=== PATIENT | female | born 1980 | race Hispanic/Latino ===

== ENCOUNTER 2022-08-19 09:38 | Day surgery (SDC) | payer OTHER ==
[~2022-08-19] VITALS: Ht 162.6 cm; Wt 108.0 kg
[~2022-08-19 09:38] MED LIST: FLUOXETINE HCL10 M1 PO; MEDDOSEPAK PO; TIZANIDINE HCL2 MG PO
[2022-08-19] MEDS ORDERED: PERCOCET 5/321 COMBO PO (12:37)
[2022-08-19 13:42] VITALS: BP 99/83
== END 2022-08-19 13:36 | disposition home or self-care (01) ==
LOC: ENDO 09:38 → ORM 10:15 → ENDO 10:15
PROVIDERS: ATTEND Surgery
DX: K64.2 Third degree hemorrhoids (principal); Z12.11 Encounter for screening for malignant neoplasm of colon; Z80.0 Family history of malignant neoplasm of digestive organs
CPT/HCPCS: C9290; J0131